=== PATIENT | male | born 1930 | race Caucasian/White ===

== ENCOUNTER 2020-12-02 13:05 | Inpatient (IN) | payer BC, OTHER ==
[2020-12-02] MEDS ORDERED: LIDOCAINE 5% TOPICAL PATCH TP ONE (14:22)
[2020-12-02] MEDS ORDERED: LIDOCAINE 5% TOPICAL PATCH ONE (14:44)
[2020-12-02 19:06] LABS: URINE APPEARANCE CLEAR; URINE BILIRUBIN NEGATIVE (NEGATIVE); URINE COLOR DK YELLOW; URINE GLUCOSE (UA) NEGATIVE (NEGATIVE); URINE KETONE 1+ (NEGATIVE); URINE LEUK ESTERASE NEGATIVE (NEGATIVE); URINE NITRITE NEGATIVE (NEGATIVE); URINE PROTEIN NEGATIVE (NEGATIVE)
[2020-12-02 20:55] LABS: BASO % 0.3 % (0-2.0); EOS % 0.8 % (0-4.5); HEMATOCRIT 48.1 % (35.4-49); HEMOGLOBIN 16.4 GM/dL (11.7-16.9); LYMPH % 13.9 % (8-40); MCH 30.3 pg (25.7-33.7); MCHC 34.2 g/dl (32.0-35.9); MEAN CELL VOLUME 88.7 fl (80-96); MEAN PLT VOLUME 8.4 fl (7.5-11.1); MONO % 8.7 % (3.8-10.2); NEUT % 76.3 % (42.8-82.8); PLATELET COUNT 325 10^3/uL (134-434); RBC 5.42 M/mm3 (4.00-5.60); RDW 14.4 % (11.9-15.9); WHITE BLOOD COUNT 14.2 K/mm3 (4.0-10.0)
[2020-12-02 21:17] LABS: BLOOD UREA NITROGEN 14.5 mg/dL (7-18); CALCIUM 8.9 mg/dL (8.5-10.1)
[2020-12-02 21:20] LABS: CREATININE 0.9 mg/dL (0.55-1.3)
[2020-12-02] MEDS ORDERED: LIDOCAINE PATCH REMOVAL MC ONE (22:00)
[2020-12-02] MEDS: LISINOPRIL 10 MG TABLET PO SCH (22:50)
[2020-12-02] MEDS ORDERED: LISINOPRIL 5 MG TABLET ONE (22:53)
[2020-12-03] MEDS ORDERED: ACETAMINOPHEN 1000 MG/100 ML VIAL (NON FORMULARY) IVPB PRN (00:54)
[2020-12-03 02:54] VITALS: BMI 24.5
[2020-12-03 09:33] LABS: BASO % 0.7 % (0-2.0); EOS % 0.8 % (0-4.5); HEMATOCRIT 49.3 % (35.4-49); HEMOGLOBIN 16.6 GM/dL (11.7-16.9); LYMPH % 18.1 % (8-40); MCH 30.5 pg (25.7-33.7); MCHC 33.7 g/dl (32.0-35.9); MEAN CELL VOLUME 90.6 fl (80-96); MEAN PLT VOLUME 9.6 fl (7.5-11.1); MONO % 8.6 % (3.8-10.2); NEUT % 71.8 % (42.8-82.8); PLATELET COUNT 292 10^3/uL (134-434); RBC 5.45 M/mm3 (4.00-5.60); RDW 14.7 % (11.9-15.9); WHITE BLOOD COUNT 14.7 K/mm3 (4.0-10.0)
[2020-12-03] MEDS: ENOXAPARIN NA (PORCINE) 40 MG/0.4 ML DISP.SYRIN SQ SCH (09:39)
[2020-12-03] MEDS: LISINOPRIL 10 MG TABLET PO SCH (09:39)
[2020-12-03 09:40] LABS: INR 1.04 (0.83-1.09); PROTHROMBIN TIME (PATIENT) 12.8 SEC (9.7-13.0)
[2020-12-03 09:42] LABS: ACTIVATED PTT 21.3 SECONDS (25.2-36.5)
[2020-12-03 10:02] LABS: CALCIUM 8.7 mg/dL (8.5-10.1)
[2020-12-03 10:05] LABS: CREATININE 0.7 mg/dL (0.55-1.3)
[2020-12-03] MEDS ORDERED: traMADol HCL 50 MG TABLET PO PRN (13:08)
[2020-12-03] MEDS: ATORVASTATIN CA 10 MG TABLET (FP) PO SCH (21:57)
[2020-12-04] MEDS: ENOXAPARIN NA (PORCINE) 40 MG/0.4 ML DISP.SYRIN SQ SCH (11:21)
[2020-12-04] MEDS: LISINOPRIL 10 MG TABLET PO SCH (11:21)
[2020-12-04] MEDS: ATORVASTATIN CA 10 MG TABLET (FP) PO SCH (21:40)
[2020-12-05] MEDS: LISINOPRIL 10 MG TABLET PO SCH (09:51)
[2020-12-05] MEDS: ENOXAPARIN NA (PORCINE) 40 MG/0.4 ML DISP.SYRIN SQ SCH (09:51)
[2020-12-05] MEDS: ATORVASTATIN CA 10 MG TABLET (FP) PO SCH (21:10)
[2020-12-06] MEDS ORDERED: PT OWN MED DRAWER 7, Y5N ONE ×2 (08:54→12:55)
[2020-12-06] MEDS: ACETAMINOPHEN 325 MG TABLET (FP) PO PRN (09:29)
[2020-12-06] MEDS: ENOXAPARIN NA (PORCINE) 40 MG/0.4 ML DISP.SYRIN SQ SCH (09:30)
[2020-12-06] MEDS: LISINOPRIL 10 MG TABLET PO SCH (09:30)
[2020-12-06] MEDS: ATORVASTATIN CA 10 MG TABLET (FP) PO SCH (21:32)
[2020-12-07] MEDS ORDERED: PT OWN MED DRAWER 7, Y5N ONE ×6 (08:52→17:33)
[2020-12-07 08:57] LABS: HEMATOCRIT 49.8 % (35.4-49); HEMOGLOBIN 16.5 GM/dL (11.7-16.9); MCH 30.1 pg (25.7-33.7); MCHC 33.2 g/dl (32.0-35.9); MEAN CELL VOLUME 90.8 fl (80-96); MEAN PLT VOLUME 9.5 fl (7.5-11.1); PLATELET COUNT 306 10^3/uL (134-434); RBC 5.49 M/mm3 (4.00-5.60); RDW 14.8 % (11.9-15.9); WHITE BLOOD COUNT 12.4 K/mm3 (4.0-10.0)
[2020-12-07 09:09] LABS: CALCIUM 8.7 mg/dL (8.5-10.1)
[2020-12-07 09:10] LABS: BLOOD UREA NITROGEN 10.5 mg/dL (7-18)
[2020-12-07 09:13] LABS: CREATININE 0.8 mg/dL (0.55-1.3)
[2020-12-07] MEDS: ENOXAPARIN NA (PORCINE) 40 MG/0.4 ML DISP.SYRIN SQ SCH (09:42)
[2020-12-07] MEDS: LISINOPRIL 10 MG TABLET PO SCH (09:42)
[2020-12-07] MEDS: ACETAMINOPHEN 325 MG TABLET (FP) PO PRN (13:27)
[2020-12-07] MEDS: ATORVASTATIN CA 10 MG TABLET (FP) PO SCH (21:26)
[2020-12-08] MEDS: ENOXAPARIN NA (PORCINE) 40 MG/0.4 ML DISP.SYRIN SQ SCH (10:18)
[2020-12-08] MEDS: LISINOPRIL 10 MG TABLET PO SCH (10:19)
[2020-12-08] MEDS ORDERED: PT OWN MED DRAWER 7, Y5N ONE ×3 (10:24→17:20)
[2020-12-08] MEDS ORDERED: BISACODYL 10 MG SUPP.RECT PR ONE (12:47)
[2020-12-08] MEDS ORDERED: MAGNESIUM HYDROX 2400MG/30ML ORAL SUSPENSION 30 ML CUP PO ONE (12:47)
[2020-12-08] MEDS: ATORVASTATIN CA 10 MG TABLET (FP) PO SCH (22:05)
[2020-12-09] MEDS ORDERED: PT OWN MED DRAWER 7, Y5N ONE ×4 (07:36→17:22)
[2020-12-09] MEDS: LISINOPRIL 10 MG TABLET PO SCH (09:53)
[2020-12-09] MEDS: ENOXAPARIN NA (PORCINE) 40 MG/0.4 ML DISP.SYRIN SQ SCH (09:53)
[2020-12-09 17:52] VITALS: BP 142/76; PULSE 82; TEMP 97.9
== END 2020-12-09 18:44 | disposition home health service (06) | DRG 552 ==
LOC: JER 13:05 → JERBED 18:15 → J8W 12-03 02:01
PROVIDERS: ADMIT Internal Medicine; ATTEND Family Medicine
DX: S22.080A Wedge compression fracture of T11-T12 vertebra, initial encounter for closed fracture (principal); G95.9 Disease of spinal cord, unspecified; E78.00 Pure hypercholesterolemia, unspecified; I10 Essential (primary) hypertension; I71.9 Aortic aneurysm of unspecified site, without rupture; R26.9 Unspecified abnormalities of gait and mobility; M48.07 Spinal stenosis, lumbosacral region; W18.30XA Fall on same level, unspecified, initial encounter; Y92.098 Other place in other non-institutional residence as the place of occurrence of the external cause; Z95.1 Presence of aortocoronary bypass graft
CPT/HCPCS: 36415; 70551-TC; 71045-TC-FY; 72128-TC; 72131-TC; 72141-TC; 80048; 81003; 82607; 84443; 85025; 85027; 85610; 85730; 86780; 93005; 93010; 97116-GP; 97162-GP; 99285-25; C9803; U0003; U0005